=== PATIENT | female | born 1950 | race Caucasian/White ===

== ENCOUNTER 2019-06-26 07:53 | Observation (INO) | payer MEDICARE, BC, OTHER ==
--- NOTE | 2019-06-14 08:55 | HP ---
HISTORY AND PHYSICAL: DATE OF ADMISSION/SURGERY: 06/26/19 DATE OF OFFICE VISIT: 06/13/19 SURGEON: Sloane Sinha MD * (DICTATED BY BRANDON MARROQUIN) PROCEDURE: Left total knee arthroplasty. CHIEF COMPLAINT: Left knee pain. HISTORY OF PRESENT ILLNESS: Ms. Rebolledo is a 69-year-old female with end-stage osteoarthritis of the left knee. She has failed conservative treatment and elected to proceed with a left total knee arthroplasty. PAST MEDICAL HISTORY: 1. Hypertension. 2. High cholesterol. 3. Hypothyroidism. 4. History of thyroid cancer. PAST SURGICAL HISTORY: 1. Thyroidectomy. 2. Breast reduction. 3. Tonsillectomy. 4. . 5. Bunionectomy. CURRENT MEDICATIONS: 1. Citalopram hydrobromide 10 mg a day. 2. Livalo 2 mg daily. 3. Levothyroxine 137 mcg a day. 4. Vitamin D. 5. Meloxicam 15 mg a day. 6. Losartan potassium 50 mg a day. 7. Aspirin 81 mg a day. ALLERGIES: No known drug allergies. FAMILY HISTORY: Denies. SOCIAL HISTORY: She is a 69-year-old female, lives with her . She does not smoke, or use drugs or alcohol. REVIEW OF SYSTEMS: A complete 14-point review of systems was reviewed with the patient. It was positive for a history of thyroid cancer resulting in a thyroidectomy causing hypothyroidism. She denies history of DVT, PE, hepatitis , HIV or anesthesia problems. PHYSICAL EXAMINATION GENERAL: She is well developed, well nourished, in no acute distress. VITAL SIGNS: She stands 64 inches tall, weighs 180 pounds. Her blood pressure is 118/72 and her heart rate is 60. HEENT: Normocephalic, atraumatic. NECK: Supple. No palpable lymph nodes. PULMONARY: The lungs are clear to auscultation bilaterally. CARDIO: Regular rate and rhythm. Strong S1, S2. ABDOMEN: Soft, nontender, nondistended. MUSCULOSKELETAL: Left lower extremity: The skin is intact. No open wounds or abrasions. There is a moderate effusion of the left knee joint. Some tenderness along the medial and lateral joint line. There is some varus and valgus laxity with stress testing. Range of motion is 10 to 120 degrees of flexion. She is able to dorsiflex and plantar flex. She has a 2+ dorsalis pedis pulse and intact sensation. NEUROLOGICAL: She is alert and oriented x3. ASSESSMENT AND PLAN: Ms. Rebolledo is a 69-year-old female with end-stage osteoarthritis of the left knee. She has failed conservative treatment and elected to proceed with a left total knee arthroplasty. The surgery is scheduled for 06/26/[address] Sinha discussed the risks and benefits of the surgery at today's visit and all of her questions were answered. She will follow up with Dr. Sinha 2 weeks after the surgery. RBANDON MARROQUIN [id number]/CPS #: [id number] MTDD
[~2019-06-26 07:53] MED LIST: Acetaminophen TAB* 325 MG PO ONE; Buffered Lidocaine 1% SYRIN* 1 ML/SYRINGE INTRADERM ONE; Famotidine IV* 10 MG/ML 2 ML (20 mg) IV ONE; Gabapentin CAP(*) 300 MG PO ONE; Lactated Ringers 1000 ML Bag* 1,000 ML IV SCH; Tranexamic Acid 1,000 MG in NS 0.9% 50 ML* (outpatient use) IV SCH
--- OUTSIDE RECORDS SUMMARY | 2019-06-26 07:56 | XMS REPORT | Continuity of Care Document ---
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 [phone] Endocrinology, Diabetes & Metabolism Problems Active Problems Provider Date Hypothyroidism Onset: 01/27/2010 Benign essential hypertension Kimberly Beckham MD Onset: 11/08/2011 Pure hypercholesterolemia Kimberly Beckham MD Onset: 02/25/2016 Essential hypertension Kimberly Beckham MD Onset: 10/01/2015 Social History Type Date Description Comments Sex Unknown Cigarette Use Quit - Age 50 Tobacco Use Start: Unknown End: Unknown Patient is a former smoker Smoking Status Reviewed: 06/19/19 Patient is a former smoker Allergies, Adverse Reactions, Alerts Description No Known Drug Allergies Medications Active Medications SIG Qnty Indications Ordering Provider Date Citalopram Hydrobromide Take One Tablet 90tabs F32.1 Kimberly Beckham 09/2017 By Mouth Every MMD 10mg Tablets Day Shingrix 2 shot series 2units Kimberly Beckham 10/17/2017 50mcg Suspension MD [facility] Rec Livalo Take One Tablet 90tabs E78.2 Kimberly Beckham 10/03/2015 2mg Tablets By Mouth Every MMD Day Levothyroxine Sodium take one tablet 90tabs E03.9 Kimberly Beckham 2014 137mcg by mouth every MMD Tablets day Vitamin D 1 by mouth E55.9 Kimberly Beckham 07/12/2014 1000Unit Tablets every day MD [facility] Meloxicam Take 1/2 To 1 90tabs M17.10 Angel Luis Strong PA 10/01/2013 15mg Tablets Tablet By Mouth Once Daily as Needed Losartan Potassium Take One Tablet 90tabs I10 Kimberly Beckham 07/13/2010 50mg By qhs MD [facility] Tablets Aspirin 1 po qOd 90tabs 786.09 Kimberly Beckham 01/27/[address] [facility] MD History Medications Citalopram 1 by mouth 90tabs F32.1 Kimberly Beckham 04/02/2019 - Hydrobromide every day MD [facility] 04/02/2019 20mg Tablets Medications Administered in Office Medication SIG Qnty Indications Ordering Provider Date PPD Kimberly Beckham MD 04/02/2019 Injection PPD Nurses Schedule [facility] 04/17/2018 Injection PPD Kimberly Beckham MD 03/28/2017 Injection Immunizations CPT Code Status Date Vaccine Lot # [id number] Given 04/02/2019 Influenza Vac, Quadrivalent, Split, 0.5mL Dosage, [id number] Im Use 04189 Given 05/17/2018 Influenza Vac, Quadrivalent, Split, 0.5mL Dosage, [id number] Im Use 23692 Given 02/07/2017 Influenza Vac, Quadrivalent, Split, 0.5mL Dosage, [id number] Im Use 63342 Given 02/25/2016 Influenza Vac, Quadrivalent, Split, 0.5mL Dosage, [id number] Im Use 06361 Given 01/20/2015 Zoster (Zostavax) 30159 Given 01/01/2015 Prevnar 13 Pneumococal Conjugate Vaccine [id number] Q2038 Given 03/08/2014 Fluzone Trivalent Immunization [id number] 79311 Given 10/01/2013 Pneumococcal 23 Immunization Adult Or Immunosuppressed Patient 47211 Given 10/01/2013 Pneumococcal 23 Immunization Adult Or [id number] Immunosuppressed Patient Q2038 Given 03/27/2013 Fluzone Trivalent Immunization [id number] Q2038 Given 2012 Fluzone Trivalent Immunization [id number] Q2038 Given 05/14/2011 Fluzone Trivalent Immunization [id number] 51308 Given 02/07/2011 Tdap (Adacel) Ages 7 And Above Only [id number] 45257 Given 02/23/2010 Afluria Or Fluvirin Flu Vac Intramuscular [id number] Vital Signs Date Vital Result Comment 06/19/2019 2:48pm Weight 180.00 lb Heart Rate 80 /min BP Systolic 112 mmHg BP Diastolic 70 mmHg Height 64 inches 5'4" BMI (Body Mass Index) 30.9 kg/m2 04/02/2019 9:08am Weight 178.00 lb Heart Rate 68 /min BP Systolic 132 mmHg BP Diastolic 78 mmHg Height 64 inches 5'4" BMI (Body Mass Index) 30.6 kg/m2 Results Test Acquired Date Facility Test Result H/L Range Note Laboratory test 04/16/2019 [facility] Free Thyroxine 1.71 ng/dL High 0.93-1.70 finding TSH 0.875 u[IU]/mL 0.270-4.200 Thyroglob And AB, 04/16/2019 [facility] Thyroglob SerPl-mCnc 0.1 ng/mL <35 1 Quant Thyroglob Ab SerPl-aCnc <0.9 IU/mL <2.3 2 Laboratory test 04/06/2019 [facility] Igg AB POSITIVE AI 3, 4 finding Lipid Treatment 04/02/2019 [facility] Cholesterol 214 mg/dL High 50-199 Triglycerides 76 mg/dL 30-200 HDL 75 mg/dL 35-85 5 Chol/ HDL Ratio 2.8 ratio Low 3.7-5.6 VLDL 15 mg/dL 2-29 LDL (Calc) 124 mg/dL High 20-99 6 Alt 26 U/L 3-42 Ast 21 U/L 8-42 Laboratory test finding 04/02/2019 [facility] TSH 1.62 uIU/mL 0.35-4.94 Basic (BMP) 04/02/2019 [facility] Sodium 144 mmol/L 135-146 7 Potassium 4.7 mmol/L 3.5-5.2 Chloride# 106 mmol/L 97-110 8 Carbon Dioxide 28 mmol/L 24-34 Glucose 83 mg/dL 70-105 BUN 19 mg/dL 6-26 Creatinine 0.9 mg/dL 0.5-1.4 Calcium 9.5 mg/dL 8.5-10.5 9 Female Egfr 69 >60 10 Male Egfr 88 >60 11 Anion Gap 10 mmol/L 5-15 12 Laboratory test finding 04/02/2019 [facility] Vitamin D 25 Hydroxy 30 ng/mL 30-100 13 1 (NOTE) Note: High Biotin intake may cause falsely low results. Interpretation: If Thyroglobulin Antibody results ">2.3 IU/mL", Thyroglobulin testing via LC-MS/MS should be ordered, which is a send out test ([employer] Test Code:579369). Test performed on [employer] [place] Access 2 using immunoenzymatic immunoassay technology. 2 (NOTE) Note: High Biotin intake may cause falsely low results. Test performed on [employer] [place] Access 2 using immunoenzymatic immunoassay technology. 3 This sample is drawn by:[facility]. 4 IgG antibody to Rubella detected. IgG antibody levels are at a level considered to indicate positive immunity. Unless otherwise specified, testing performed by [facility] [address] [place] [id number] 5 Per NCEP ATP III Guidelines: Results lower than 40 mg/dL are suggestive of increased risk for coronary artery disease. Results > or = to 60 mg/dL are considered a negative risk factor. 6 Per NCEP ATP III Guidelines: Normal Population <130 Patients with medical conditions: CHD/DM Optimal: <100 Borderline high: 130-159 High: 160-189 Very high: >189 7 Updated reference range on new analyzer 8 Updated reference range on new analyzer 9 Updated reference range 09-27-2018 10 Concerning GFR Guidelines for Americans: Normal function or mild renal disease, if clinically at risk: >/= 60 mL/min Moderately decreased: 30-59 Severely decreased: 15-29 Renal failure: <15 There is reduced accuracy above 60ml/min/1.73 m squared, but the numeric value may be clinically useful in the near 60 range 11 Concerning GFR Guidelines: Normal function or mild renal disease, if clinically at risk: >/= 60 mL/min Moderately decreased: 30-59 Severely decreased: 15-29 Renal failure: <15 There is reduced accuracy above 60ml/min/1.73 m squared, but the numeric value may be clinically useful in the near 60 range Glomerular Filtration Rate (GFR) is estimated based on the CKD-EPI equation, which assumes a steady state for creatinine as recommended by the National Kidney Disease Education Program in conjunction with the National Institutes of Health and the National Kidney Foundation. Clinical conditions in which it may be necessary to measure GFR by using clearance methods include extremes of age and body size, severe malnutrition or obesity, diseases of skeletal muscle, paraplegia or quadriplegia, vegetarian diet, rapidly changing kidney function, and calculation of the dose of potentially toxic drugs that are excreted by the kidneys. 12 Updated Reference Range 2-2017 13 Clinical Guidelines for recommended serum 25(OH)Vitamin D Deficient at less than 20 ng/mL Insufficient at 20 to <30 ng/mL Sufficient at 30-100 ng/mL Toxicity at greater than 100 ng/mL Procedures Date Code Description Status 06/07/2018 355261867 Bone Mineral Density Test Completed 06/07/2018 [id number] Mammogram Completed 01/19/2017 [id number] Colonoscopy Completed 06/25/2015 [id number] Mammogram Completed 12/03/2013 [id number] Mammogram Completed 10/11/2011 [id number] Colonoscopy Completed 04/08/2010 [id number] Mammogram Completed Medical Devices Description No Information Available Encounters Type Date Location Provider Dx Diagnosis Office Visit 04/04/2019 [facility] Z11.1 Encounter for screening 9:30a [facility] for respiratory tuberculosis Office Visit 04/02/2019 Kimberly Andino Z11.1 Encounter for screening 9:00a MD [facility] for respiratory tuberculosis E66.9 Obesity, unspecified I10 Essential (primary) hypertension E03.9 Hypothyroidism, unspecified R59.0 Localized enlarged lymph nodes C73 Malignant neoplasm of thyroid gland F32.1 Major depressive disorder, single episode, moderate E55.9 Vitamin D deficiency, unspecified E78.2 Mixed hyperlipidemia I71.2 Thoracic aortic aneurysm, without rupture M17.0 Bilateral primary osteoarthritis of knee Z23 Encounter for immunization 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 Z68.30 Body mass index (BMI) 30.0-30.9, adult Assessments Date Code Description Provider 06/19/2019 E66.9 Obesity, unspecified Kimberly Beckham MD 06/19/2019 Z01.818 Encounter for other preprocedural Kimberly Beckham MD examination 06/19/2019 F32.1 Major depressive disorder, single episode, Kimberly Beckham MD moderate 06/19/2019 C73 Malignant neoplasm of thyroid gland Kimberly Beckham MD 06/19/2019 I71.2 Thoracic aortic aneurysm, without rupture Kimberly Beckham MD 06/19/2019 I10 Essential (primary) hypertension Kimberly Beckham MD 06/19/2019 M17.12 Unilateral primary osteoarthritis, LEFT Kimberly Beckham MD knee 06/19/2019 E55.9 Vitamin D deficiency, unspecified Kimberly Beckham MD 06/19/2019 Z68.30 Body mass index (BMI) 30.0-30.9, adult Kimberly Beckham MD 04/06/2019 Z28.3 Underimmunization status Kimberly Beckham MD 04/04/2019 Z11.1 Encounter for screening for respiratory Kimberly Beckham MD tuberculosis 04/04/2019 Z11.1 Encounter for screening for respiratory Nurses Schedule [facility] tuberculosis 04/02/2019 Z11.1 Encounter for screening for respiratory Kimberly Beckham MD tuberculosis 04/02/2019 E66.9 Obesity, unspecified Kimberly Beckham MD 04/02/2019 I10 Essential (primary) hypertension Kimberly Beckham MD 04/02/2019 E03.9 Hypothyroidism, unspecified Kimberly Beckham MD 04/02/2019 E55.9 Vitamin D deficiency, unspecified [facility] 04/02/2019 R59.0 Localized enlarged lymph nodes Kimberly Beckham MD 04/02/2019 C73 Malignant neoplasm of thyroid gland Kimberly Beckham MD 04/02/2019 F32.1 Major depressive disorder, single episode, Kimberly Beckham MD moderate 04/02/2019 E55.9 Vitamin D deficiency, unspecified Kimberly Beckham MD 04/02/2019 E78.2 Mixed hyperlipidemia Kimberly Beckham MD 04/02/2019 I71.2 Thoracic aortic aneurysm, without rupture Kimberly Beckham MD 04/02/2019 M17.0 Bilateral primary osteoarthritis of knee Kimberly Beckham MD 04/02/2019 Z23 Encounter for immunization Kimberly Beckham MD 04/02/2019 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 Plan of Treatment Future Appointment(s):07/16/2019 9:00 am - Kimberly Beckham MD at [facility]0906/19 - Kimberly Beckham MDE66.9 Obesity, llsxclnkyifR99.818 Encounter for other preprocedural gnjcaxatqiyB42.1 Major depressive disorder, single episode, xqxopstxR39 Malignant neoplasm of thyroid jzharX54.2 Thoracic aortic aneurysm, without sfgadihB27 Essential (primary) ztsbtnmvmzevP75.12 Unilateral primary osteoarthritis, LEFT kneeE55.9 Vitamin D deficiency, hsomaobawacE20.30 Body mass index (BMI) 30.0-30.9, adult Functional Status Description No Information Available Mental Status Description No Information Available Referrals Refer to Reason for Referral Status Appt Date Sloane Sinha DR BILATERAL KNEE-TUESDAY, TUE OR TUESDAY Closed 04/16/201904/02-SCHEDULED WITH TENISHA SCHMIDT PUT IN PT TELEVISION SERVICER FOR WHEN SHE IS IN ON TUE FOR AN APPT-AA 04/05-CONFIRMED WITH T SHE HAS INFO AND THIS WILL WORK FOR HER-AA [address] [place] [address] [phone]
--- OUTSIDE RECORDS SUMMARY | 2019-06-26 07:56 | XMS REPORT | Continuity of Care Document ---
:1950 External Reference #:[id number] Author Name Sloane Sinha M.D. (transmitted by agent of provider Irma Denney) Address [address] [place] [address] Care Team Providers Name Role Phone Kimberly Beckham MD - Internal Care Team Information [facility] Problems Active Problems Provider Date Localized, primary osteoarthritis Sloane Sinha M.D. Onset: 04/16/2019 Social History Type Date Description Comments Sex Unknown Tobacco Use Start: Unknown End: Unknown Patient is a former smoker Smoking Status Reviewed: 06/13/19 Patient is a former smoker Allergies, Adverse Reactions, Alerts Description No Known Drug Allergies Medications Active Medications SIG Qnty Indications Ordering Provider Date Citalopram Hydrobromide 1 by mouth every Unknown day 10mg Tablets Livalo take one tablet Unknown 2mg Tablets by mouth every evening Levothyroxine Sodium 1 by mouth every Unknown 137mcg day Tablets Vitamin D by mouth everyday Unknown 25mcg (1000 Ut) Tablets Meloxicam 1 by mouth every Unknown 15mg Tablets day Losartan Potassium 1 by mouth every Unknown 50mg day Tablets Aspir-Low 1 by mouth every Unknown 81mg Tablets DR day Immunizations Description No Information Available Vital Signs Date Vital Result Comment 06/13/2019 8:31am Height 64 inches 5'4" Weight 180.00 lb Heart Rate 60 /min BP Systolic 118 mmHg BP Diastolic 72 mmHg Respiratory Rate 18 /min Pain Level 0 BMI (Body Mass Index) 30.9 kg/m2 04/16/2019 8:40am Height 64 inches 5'4" Weight 177.00 lb Heart Rate 72 /min BP Systolic 132 mmHg BP Diastolic 82 mmHg Body Temperature 96.5 F Pain Level 1 BMI (Body Mass Index) 30.4 kg/m2 Results Description No Information Available Procedures Description No Information Available Medical Devices Description No Information Available Encounters Type Date Location Provider Dx Diagnosis Office Visit 04/16/2019 [facility] Sloane Sinha, M25.562 Pain in left knee 8:00a at [place] [facility] M25.561 Pain in right knee M25.462 Effusion, left knee M25.461 Effusion, right knee M17.0 Bilateral primary osteoarthritis of knee 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 06/13/2019 M25.462 Effusion, left knee Sloane Sinha M.D. 06/13/2019 M17.0 Bilateral primary osteoarthritis of knee Sloane Sinha M.D. 06/13/2019 M21.162 Varus deformity, not elsewhere classified, tania Sinha M.D. knee 04/16/2019 M25.562 Pain in left knee Sloane Sinha M.D. 04/16/2019 M25.561 Pain in right knee Sloane Sinha M.D. 04/16/2019 M25.462 Effusion, left knee Sloane Sinha M.D. 04/16/2019 M25.461 Effusion, right knee Sloane Sinha M.D. 04/16/2019 M17.0 Bilateral primary osteoarthritis of knee Sloane Sinha M.D. 04/16/2019 M21.162 Varus deformity, not elsewhere classified, left Sloane Sinha M.D. knee Plan of Treatment Future Appointment(s):07/09/2019 9:45 am - Sloane Sinha M.D. at [facility] at Ngnjxz9306/26/2019 2:30 pm - Karan Sow PA-C at [facility] at Edpkyr5206/26/2019 2:30 pm - BRANDON Chin at [facility] at Eewkyu7906/26/2019 2:30 pm - Sloane Sinha M.D. at [facility] at Mmdjym1206/13/2019 - Sloane Sinha M.D.M25.562 Pain in left kneeFollow up:Follow up: 2 weeks after vfnzpgjP51.462 Effusion, left kneeM17.0 Bilateral primary osteoarthritis of kneeM21.162 Varus deformity, not elsewhere classified, left knee Functional Status Description No Information Available Mental Status Description No Information Available Referrals Description No Information Available
--- OUTSIDE RECORDS SUMMARY | 2019-06-26 07:56 | XMS REPORT | Continuity of Care Document ---
:1950 External Reference #:[id number] Author Name Sloane Sinha M.D. (transmitted by agent of provider Mary Kate Rubio) Address [address] [place] [address] Care Team Providers Name Role Phone Kimberly Beckham MD - Internal Care Team Information Residential Pest Control Technician Medicine Problems Active Problems Provider Date Localized, [...] BMI (Body Mass Index) 30.4 kg/m2 Results Test Acquired Date Facility Test Result H/L Range Note Urinalysis Profile 06/13/2019 [facility] Urine Color Straw [address] [place] [address] [phone] Urine Appearance Clear Urine Specific [place] 1.006 Low 1.010-1.030 Urine pH 7.0 Normal 5-9 Urine Urobilinogen Negative Negative Urine Ketones Negative Negative Urine Protein Negative Negative Urine Leukocytes 3+ Abnormal Negative Urine Blood 1+ Abnormal Negative Urine Nitrite Negative Negative Urine Bilirubin Negative Negative Urine Glucose Negative Negative Urine White Blood Cell 3+(>20/hpf) Abnormal Absent Urine Red Blood Cell Trace(0-2/hpf) Absent Urine Bacteria Absent Absent Urine Squamous Epithelial Cell Present Abnormal Absent Urine Transitional Epithelial Present Abnormal Absent CBC Auto 06/13/2019 [facility] White Blood 4.1 10^3/uL Normal 3.5-10.[address] [place] [address] [phone] Red Blood Count 4.97 10^6/uL High 3.70-4.87 Hemoglobin 14.4 g/dL Normal 12.0-16.0 Hematocrit 42 % Normal 35-47 Mean Corpuscular Volume 85 fL Normal 80-97 Mean Corpuscular Hemoglobin 29 pg Normal 27-31 Mean Corpuscular HGB Conc 34 g/dL Normal 31-36 Red Cell Distribution Width 14 % Normal 10-15 Platelet Count 296 10^3/uL Normal 150-450 Mean Platelet Volume 8.2 fL Normal 7.4-10.4 Abs Neutrophils 2.1 10^3/uL Normal 1.5-7.7 Abs Lymphocytes 1.5 10^3/uL Normal 1.0-4.8 Abs Monocytes 0.3 10^3/uL Normal 0-0.8 Abs Eosinophils 0.1 10^3/uL Normal 0-0.6 Abs Basophils 0.0 10^3/uL Normal 0-0.2 Abs Nucleated RBC 0.0 10^3/uL Granulocyte % 52.1 % Lymphocyte % 36.8 % Monocyte % 8.2 % Eosinophil % 2.5 % Basophil % 0.4 % Nucleated Red Blood Cells % 0.1 Comp Metabolic 06/13/2019 [facility] Sodium 139 mmol/L Normal 135-[address] [place] [address] [phone] Potassium 4.7 mmol/L Normal 3.5-5.0 Chloride 104 mmol/L Normal 101-111 Co2 Carbon Dioxide 29 mmol/L Normal 22-32 Anion Gap 6 mmol/L Normal 2-11 Glucose 81 mg/dL Normal 70-100 Blood Urea Nitrogen 21 mg/dL Normal 6-24 Creatinine 0.86 mg/dL Normal 0.51-0.95 BUN/Creatinine Ratio 24.4 High 8-20 Calcium 9.5 mg/dL Normal 8.6-10.3 Total Protein 6.8 g/dL Normal 6.4-8.9 Albumin 4.6 g/dL Normal 3.2-5.2 Globulin 2.2 g/dL Normal 2-4 Albumin/Globulin Ratio 2.1 Normal 1-3 Total Bilirubin 0.70 mg/dL Normal 0.2-1.0 Alkaline Phosphatase 52 U/L Normal 34-104 Alt 29 U/L Normal 7-52 Ast 19 U/L Normal 13-39 Egfr Non- 65.0 >60 Egfr 78.7 >60 1 Inr/Protime 06/13/2019 [facility] Inr 0.95 Normal 0.82-1.[address] [place] [address] [phone] Laboratory test 06/13/2019 [facility] Partial 36.2 Normal 26.0 -38.[address] [address] Time PTT [phone] Type & Screen 06/13/2019 [facility] Patient AB Positive [address] Blood Type [place], [place] [id number] [phone] Antibody Screen NEGATIVE Urine Culture And 06/13/2019 [facility] Urine Culture SEE RESULT [address] [place], [place] [id number] [phone] 1 Because ethnic data is not always readily available, this report includes an eGFR for both -Americans and non- Americans. The National Kidney Disease Education Program (NKDEP) does not endorse the use of the MDRD equation for patients that are not between the ages of 18 and 70, are , have extremes of body size, muscle mass, or nutritional status, or are non- or non-. According to the National Kidney Foundation, irrespective of diagnosis, the stage of the disease is based on the level of kidney function: Stage Description GFR(mL/min/1.73 m(2)) 1 Kidney damage with normal or decreased GFR 90 2 Kidney damage with mild decrease in GFR 60-89 3 Moderate decrease in GFR 30-59 4 Severe decrease in GFR 15-29 5 Kidney failure <15 (or dialysis) 2 Standard intensity warfarin therapeutic range: 2.0-3.0 High intensity warfarin therapeutic range: 2.5-3.5 3 SEE RESULT BELOW Name: FLORENCIA ROSAS : [address]: Sloane Sinha MD Acct: [id number] Unit: [id number] AGE: 69 Location: [facility] Re06/13/19 SEX: F Status: REG REF SPEC: [id number] TATIANA: 06/13/[address] [facility] [address]: Sloane Sinha MD REQ: [id number] RECD: 06/13/19 STATUS: VIOLETTA CASH DR: Kimberly Beckham MD _ SOURCE: URINE SPDESC: ORDERED: Urine Culture QUERIES: Urine Source: Clean Catch Procedure Result Reported Site Urine Culture Final 06/14/19- 1224 ML No growth of clinically significant organisms * ML - Main Lab . END OF REPORT DEPARTMENT OF PATHOLOGY, [address] [place] [address] Trace Benavides M.D. Director [facility] # [id number] Procedures Description No Information Available Medical Devices Description No Information Available Encounters Type Date Location Provider Dx Diagnosis Office Visit 04/16/2019 [facility] Sloane Sinha, M25.562 Pain in left knee 8:00a at [facility].DJodie M25.561 Pain in right knee M25.462 Effusion, left knee M25.461 Effusion, right knee M17.0 Bilateral primary osteoarthritis of knee 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 06/13/2019 M25.462 Effusion, left knee Sloane Sinha M.D. 06/13/2019 M17.12 Unilateral primary osteoarthritis, left knee Sloane Sinha M.D. 06/13/2019 M21.162 Varus deformity, not elsewhere classified, left Sloane Sinha M.D. knee 04/16/2019 M25.562 Pain in [...] 9:45 am - Sloane Sinha M.D. at [facility] at Yizolr2306/26/2019 2:30 pm - Karan Sow PA-C at [facility] at Cmkjaw2306/26/2019 2:30 pm - BRANDON Chin at [facility] at Rakhiy9106/26/2019 2:30 pm - Sloane Sinha M.D. at [facility] at Jdmdmj2306/13/2019 - Sloane Sinha M.D.M25.562 Pain in left kneeFollow up:Follow up: 2 weeks after yxvmzggW51.462 Effusion, left kneeM17.12 Unilateral primary osteoarthritis, left kneeM21.162 Varus deformity, not elsewhere classified, left knee Functional Status Description No Information Available Mental Status Description No Information Available Referrals Description No Information Available
[2019-06-26] MEDS ORDERED: Gabapentin CAP(*) 300 MG ONE (08:43)
[2019-06-26] MEDS ORDERED: Acetaminophen TAB* 325 MG ONE (08:43)
[2019-06-26] MEDS ORDERED: ceFAZolin 2 GM PREMIX in ORs 2 GM/50 ML BAG ONE (08:43)
[2019-06-26] MEDS ORDERED: Famotidine IV* 10 MG/ML 2 ML (20 mg) ONE (08:43)
[2019-06-26] MEDS ORDERED: fentaNYL* 50 MCG/ML 2 ML VIAL (100 MCG VIAL) ONE (09:23)
[2019-06-26] MEDS ORDERED: Ondansetron INJ* 2 MG/ML VIAL ONE (09:23)
[2019-06-26] MEDS ORDERED: KETAMINE HCL* 50 MG/ML 10 ML VIAL ONE (09:23)
[2019-06-26] MEDS ORDERED: Propofol* 10 MG/ML 20 ML BTL ONE ×2 (09:23→11:26)
[2019-06-26] MEDS ORDERED: Dexamethasone IV* 4 MG/ML 1 ML (4 MG) ONE (09:23)
[2019-06-26] MEDS ORDERED: Midazolam* 1 MG/ML 10 ML VIAL (10 MG) ONE (09:23)
[2019-06-26] MEDS ORDERED: ROPIVACAINE 5 MG/ML 30 ML BTL (0.5%) ONE ×2 (09:23→10:07)
[2019-06-26] MEDS ORDERED: Lidocaine 2% PF * 5 ML VIAL ONE (09:23)
[2019-06-26] MEDS ORDERED: Bupivacaine 0.5% SDV PF* 30ML VIAL ONE (11:00)
[2019-06-26] MEDS ORDERED: Ketorolac INJ* 30 MG/ML 1 ML VIAL ONE (12:19)
[2019-06-26] MEDS ORDERED: Naloxone* 0.4 MG/ML 1 ML VIAL IV PRN (12:57)
[2019-06-26] MEDS ORDERED: fentaNYL* 50 MCG/ML 2 ML VIAL (100 MCG VIAL) IV PRN (12:57)
[2019-06-26] MEDS ORDERED: Ondansetron INJ* 2 MG/ML VIAL IV PRN ×2 (12:57→13:31)
[2019-06-26] MEDS ORDERED: Polyethylene Glycol 3350* 17 GM PACKET PO PRN (13:31)
[2019-06-26] MEDS ORDERED: Magnesium Hydroxide LIQ* 30 ML UDC PO PRN (13:31)
[2019-06-26] MEDS ORDERED: diPHENhydraMINE PO* 25 MG PO PRN (13:31)
[2019-06-26] MEDS ORDERED: diPHENhydraMINE IV* 50 MG/ML 1 ml VIAL (BENADRYL) IV PRN (13:31)
[2019-06-26] MEDS ORDERED: oxyCODONE TAB* 5 MG TAB PO PRN (13:31)
[2019-06-26] MEDS ORDERED: Ondansetron ODT TAB* 4 MG PO PRN (13:31)
[2019-06-26] MEDS ORDERED: Morphine INJ* 2 MG/ML 1 ML SYRINGE (TWO MG - NEW SYRINGE VERSION) IV PRN (13:31)
[2019-06-26] MEDS ORDERED: Cyclobenzaprine TAB* 10 MG PO PRN (13:31)
[2019-06-26] MEDS ORDERED: traMADol TAB* 50 MG PO PRN (13:31)
[2019-06-26] MEDS: Lactated Ringers 1000 ML Bag* 1,000 ML IV SCH (14:56)
--- NOTE | 2019-06-26 15:58 | PN ---
Progress Note - Progress Note Date of Service: 06/26/19 SOAP: Subjective: The pt is a sitting up in bed eating a meal. She states that she is feeling good. No pain at this point. Denies any chest pain, SOB, nausea, vomiting. Objective: General: Pt is alert and oriented x3. NAD. Vital Signs Temp 97.3 F 06/26/19 15:11 Pulse 52 06/26/19 15:11 Resp 18 06/26/19 15:11 BP 118/77 06/26/19 15:11 Pulse Ox 94 06/26/19 15:11 Intake & Output 06/25/19 06/26/19 06/26/19 18:59 06:59 18:59 Intake Total 4400 Output Total 2550 Balance 1850 Weight 176 lb Intake: IV Fluids 4400 LR 2400 Lacteted Ringer 2000 Output: Chavez 2350 Estimated Blood Loss 200 Assessment: [POD 0 LTKA] Plan: [Percocet for pain Eliquis 2.5 mg bid Abx x24 hours PT ]
--- NOTE | 2019-06-26 17:00 | CONS ---
CC: Dr. Kimberly Beckham; Dr. Sinha * CONSULTATION REPORT: DATE OF CONSULT: 06/26/19 PRIMARY CARE PROVIDER: Dr. Kimberly Beckham. REQUESTING PHYSICIAN: Dr. Sinha. REASON FOR CONSULT: Medical co-management of patient with a history of hypertension and hypothyroidism, status post elective left knee replacement. CHIEF COMPLAINT: Left knee pain. HISTORY OF PRESENT ILLNESS: Sasha Rebolledo is a 69-year-old female with a history of hypertension and hypothyroidism, who is status post elective left knee replacement by Dr. Sinha. A consultation was requested in order to medically manage the patient's hypertension. PAST MEDICAL HISTORY: 1. Hypertension. 2. Hypercholesterolemia. 3. Hypothyroidism. 4. History of thyroid cancer. PAST SURGICAL HISTORY: 1. Thyroidectomy. 2. History of breast reduction. 3. History of tonsillectomy. 4. History of . 5. Bunionectomy. MEDICATIONS AT HOME: Include: 1. Pitavastatin 2 mg daily. 2. Meloxicam mg daily. 3. Losartan 50 mg daily. 4. Levothyroxine 137 mcg daily. 5. Celexa, the patient takes 5 mg daily. 6. Calcium carbonate/vitamin D 1 capsule daily. 7. Aspirin 81 mg daily. ALLERGIES: No known drug allergies. FAMILY HISTORY: Mother is doing well and alive at age of 93. Father of lung cancer at the age of 91. SOCIAL HISTORY: The patient denies any tobacco, alcohol, or drug use. She lives with her who is her surrogate. She is currently retired and a full code. REVIEW OF SYSTEMS: Please see history of present illness. All the remaining 12 systems were reviewed with the patient and were otherwise negative. PHYSICAL EXAM: Blood pressure 125/83, heart rate of 53 and regular, respiratory rate 21, oxygen saturation 96% on room air, temperature of 96.4. General: The patient is a very pleasant 69-year-old female, who is in no acute distress. The patient is alert and oriented x3. HEENT: Head: Atraumatic, normocephalic. Eyes: Pupils are equal, reactive to light and accommodation. Oropharynx is clear. Mucosa moist. Neck: Supple. No JVD. No bruits bilaterally. Cardiovascular: Regular rate and rhythm. No murmur. Respiratory : Clear to auscultation bilaterally. Abdomen: Soft, nontender. Bowel sounds are present in all 4 quadrants. Extremities: There is trace left ankle edema. Otherwise, no edema on the right side. Pulses are +2 bilaterally. No clubbing or cyanosis. On evaluation of the skin, the patient's left postoperative knee is in postoperative dressings and Cryo unit, which were not removed for evaluation. LABORATORY DATA: Current laboratory values: None. ASSESSMENT AND PLAN: 1. In regards to postoperative management of this patient status post left knee surgery, the patient was already placed on apixaban as per primary orthopedic service. 2. For the patient's hypothyroidism, we will continue her Synthroid at home dose. 3. For the patient's hypertension, the patient is going to be continued on her losartan only if her systolic pressures are above 120 in the morning. 4. For DVT prophylaxis, Eliquis is going to be continued. 5. The patient's code status is full. Her surrogate is her . TIME SPENT: Approximately 55 minutes was spent on consultation of this patient , more than half that time was spent [id number] with the patient during the interview and physical exam. Thank you very much for allowing our service to see your patient in consultation. We will sign off at this point and we will follow the patient on a p.r.n. basis. [id number]/[facility] #: [id number] [place]
[2019-06-26] MEDS: Magnesium Hydroxide LIQ* 30 ML UDC PO SCH (19:35)
[2019-06-26] MEDS: Docusate CAP* 100 MG PO SCH (19:35)
[2019-06-26] MEDS: ceFAZolin 1 GM ADVAN(*) 1 GM in NS 0.9% 50 ML* 50 ML IVPB SCH (19:36)
--- NOTE | 2019-06-26 20:42 | OP ---
Operative Report - Blank - Operative Report Date of Operation: 06/26/19 Note: CLINT KLEIN 1950 Date of Surgery: 06/26/19 Sloane Sinha MD Fruit Washer: Maria Eugenia TAYLOR did help throughout the procedure with preparation of the knee, wound retraction, manipulation of the knee, and wound closure. Anesthesiologist: Kleber De Leon MD Anesthesia Type: Spinal Preoperative Diagnosis: Left severe degenerative osteoarthritis of the knee Postoperative Diagnosis: As above Procedure Performed: Left Total Knee Arthroplasty Tourniquet time: 49 minutes Complications: None Drains - none EBL - 300cc Specimen: Bone and cartilage from the left knee joint sent to pathology. Hardware Used: Cemented Rondon and Nephew total knee hardware was used - For the femur a size 6 left narrow legion posterior stabilized femoral component, for the tibia a size 5 left luigi II tibial baseplate, for the insert a size 9mm 5 -6 posterior stabilized articular polyethylene insert, and for the patella a size 32 3-peg all poly patella. Brief History/Indication: CLINT KLEIN was known in clinic and had a history of severe left knee pain and swelling. She failed conservative treatment with anti-inflammatories, pain pills, intra-articular injections and physical therapy. She elected to undergo left total knee arthroplasty due to continued pain and decreased quality of life. Radiographs showed severe end stage osteoarthritis of the knee with bone on bone contact. Informed consent was obtained from the patient. She understood the risks of surgery included but were not limited to: bleeding, infection, damage to nearby structures, intraoperative fracture, nerve palsy, failure of the hardware, early loosening, knee stiffness or loss of motion, anesthesia complications, stroke, heart attack , blood clot and . She wished to proceed. Intra-Operative Findings: Intraoperatively the patient was noted to have severe loss of cartilage in all 3 compartments of the knee. She had a 1 cm diameter cyst in the posterior medial femoral condyle. This was filled with bone cement. Description of the Procedure: CLINT KLEIN was identified in the preanesthesia unit. Her left knee was marked as the correct operative side. Informed consent was signed and placed in the chart. The patient was taken to the operating room and placed under anesthesia without complication. A harry catheter was placed. A tourniquet was placed on the left thigh. The left lower extremity was prepped and draped in the usual sterile fashion. Preoperative time-out was made to correctly identify the patient, side and site. Appropriate intraoperative antibiotics were given within one hour of incision. Tourniquet was inflated. A midline incision was made and carried sharply down to the extensor mechanism. A new 10 blade was used to make a standard medial parapatellar arthrotomy. The patella was subluxed laterally. Electrocautery was used to dissect soft tissue off the superomedial tibia to the midsagittal plane. The knee was flexed up. The anterior horn of the lateral meniscus and the ACL were sharply incised. A drill was used to enter the distal femur. The intramedullary distal femoral cutting guide was pinned on the distal femur. The oscillating saw was used to make the distal femoral cut. The external rotation guide was pinned on the distal femur and the distal femur was sized to a size 6. The size 6 multi-cutting jig was pinned on the distal femur. The oscillating saw was used to make the appropriate 4 chamfer cuts. A one centimeter cyst was visualized in the posterior medial femoral condyle. Cystic material was removed and the condyle was stable. Next the PCL was completely released. The extramedullary tibial cutting guide was pinned on the proximal tibia and the oscillating saw was used to make the proximal tibial cut perpendicular to the mechanical axis of the tibia. The bone was carefully removed. The knee was brought out into full extension. The spacer block was placed and had excellent fit with the knee in full extension. The medial and lateral ligaments were well balanced. The flexion and extension gaps were well balanced. The knee was flexed up. Lamina supervisor audit clerks was placed both medially and laterally. Any remaining meniscus was removed with electrocautery. Curved osteotome was used to remove any posterior osteophytes. The tibial tray and drop giorgi were placed and confirmed a satisfactory tibial cut. The size 6 left narrow femoral trial was impacted onto the distal femur. This trial had excellent fit and stability. The box for the posterior stabilized implant was prepared using a box cut osteotome and a reamer. Next a tibial tray trial and 9 mm insert trial was placed. The knee was taken through a range of motion and had full extension to 130 degrees of flexion. Patellofemoral tracking was satisfactory. The patella was inverted and sized to a size 32. Three peg holes were drilled through the size 32 drill guide. The trial patella was placed and the knee was taken through a range of motion. There was satisfactory patellofemoral tracking. All trials were removed. The tibia was subluxed anteriorly and sized to a size 5. The proximal tibial was prepared with a size 5 keel punch. All bony cut surfaces were irrigated with sterile saline and dried. Final implants were cemented into place starting with the tibia, followed by the femur, and last the patella. A 9 mm insert trial was placed and the knee was brought into full extension. Tourniquet was turned down and the knee was copiously irrigated with sterile saline. Electrocautery was used to obtain meticulous hemostasis. Once the cement had fully cured, the insert trial was removed. Any excess cement was removed from around the hardware and capsule. Final insert chosen was a 9 mm posterior stabilized Luigi II articular insert size 5-6. Stability of the insert was checked and noted to be stable. The extensor mechanism was closed using number 1 vicryls. The rest of the incision was closed in a layered fashion using 0 and 2-0 vicryls. The skin was closed using 3-0 nylon suture. Sterile xeroform, 4x4s and webril were used to cover the incision. Milad wrap and cold pack were used to cover the dressings. The patients anesthesia was reversed without difficulty. She was taken to the PACU in stable condition. Intended weight-bearing will be as tolerated.
[2019-06-26] MEDS: oxyCODONE/Acetamin 5/325 MG* TAB PO PRN (20:59)
[2019-06-26] MEDS: Acetaminophen TAB* 325 MG PO SCH (21:30)
[2019-06-27] MEDS: oxyCODONE/Acetamin 5/325 MG* TAB PO PRN (02:01)
[2019-06-27] MEDS: Lactated Ringers 1000 ML Bag* 1,000 ML IV SCH (02:02)
[2019-06-27] MEDS: ceFAZolin 1 GM ADVAN(*) 1 GM in NS 0.9% 50 ML* 50 ML IVPB SCH ×2 (03:50→11:51)
[2019-06-27] MEDS ORDERED: Levothyroxine TAB* 137 MCG TAB PO SCH (06:00)
[2019-06-27] MEDS: Acetaminophen TAB* 325 MG PO SCH ×2 (06:05→12:50)
[2019-06-27 07:16] LABS: Hematocrit 35 % (35-47); Hemoglobin 11.6 g/dL (12.0-16.0)
[2019-06-27 07:22] LABS: Calcium 8.6 mg/dL (8.6-10.3); Potassium 4.3 mmol/L (3.5-5.0)
[2019-06-27 07:25] LABS: Mean Platelet Volume 8.3 fL (7.4-10.4); Platelet Count 203 10^3/uL (150-450)
[2019-06-27 07:28] LABS: BUN/Creatinine Ratio 22.4 (8-20); EGFR African American 90.8 (>60)
[2019-06-27] MEDS ORDERED: Pitavastatin (NF) 2 MG TAB PO SCH (09:00)
[2019-06-27] MEDS ORDERED: Losartan TAB* 25 MG PO SCH ×2 (09:00)
[2019-06-27] MEDS ORDERED: Apixaban* 2.5 MG TAB PO SCH (09:00)
[2019-06-27] MEDS ORDERED: Citalopram TAB* 10 MG PO SCH (09:00)
[2019-06-27] MEDS ORDERED: Vitamin THERAPEUTIC TAB PO SCH (09:00)
[2019-06-27] MEDS: Docusate CAP* 100 MG PO SCH (09:44)
[2019-06-27] MEDS: Magnesium Hydroxide LIQ* 30 ML UDC PO SCH (09:44)
--- NOTE | 2019-06-27 10:16 | PN ---
Progress Note - Progress Note Date of Service: 06/27/19 SOAP: Subjective: []Pt seen at bedside. She feels well without cp, sob, dizziness or nausea. Knee pain well controlled. Objective: []Gen: NAD, appears well LLE: Dressing CDI, thigh soft, DF/PF intact, DP2+, sensation intact to light touch distally, dp2+ Calves supple and nontender without erythema, edema or palpable cords Assessment: []pod 1 tp ltk Plan: []WBAT PT eliquis 2.5 mg po bid x 30 days post op desires DC, home this afternoon if pt goals met hold losartan today, encourage PO fluid Vital Signs Temp 98 F 06/27/19 07:58 Pulse 53 06/27/19 07:58 Resp 18 06/27/19 09:45 BP 103/63 06/27/19 07:58 Pulse Ox 97 06/27/19 07:58 Intake & Output 06/26/19 06/27/19 06/27/19 18:59 06:59 18:59 Intake Total 4640 1080 Output Total 2550 1205 Balance 2090 -125 Weight 176 lb Intake: IV Fluids 4400 LR 2400 Lacteted Ringer 2000 Oral 240 1080 Output: Urine 750 Chavez 2350 455 Estimated Blood Loss 200 Laboratory Last Values Hgb 11.6 g/dL (12.0-16.0) L 06/27/19 06:43 Hct 35 % (35-47) 06/27/19 06:43 Plt Count 203 10^3/uL (150-450) 06/27/19 06:43 MPV 8.3 fL (7.4-10.4) 06/27/19 06:43 Sodium 138 mmol/L (135-145) 06/27/19 06:43 Potassium 4.3 mmol/L (3.5-5.0) 06/27/19 06:43 Chloride 104 mmol/L (101-111) 06/27/19 06:43 Carbon Dioxide 30 mmol/L (22-32) 06/27/19 06:43 Anion Gap 4 mmol/L (2-11) 06/27/19 06:43 BUN 17 mg/dL (6-24) 06/27/19 06:43 Creatinine 0.76 mg/dL (0.51-0.95) 06/27/19 06:43 Est GFR ( Amer) 90.8 (>60) 06/27/19 06:43 Est GFR (Non-Af Amer) 75.0 (>60) 06/27/19 06:43 BUN/Creatinine Ratio 22.4 (8-20) H 06/27/19 06:43 Glucose 98 mg/dL (70-100) 06/27/19 06:43 Calcium 8.6 mg/dL (8.6-10.3) 06/27/19 06:43
[2019-06-27 11:03] VITALS: BP 107/69
--- NOTE | 2019-06-27 14:40 | DS ---
Orthopedic Discharge Summary - Discharge Summary Date of Admission:06/26/19 Date of Discharge: 06/27/19 Date of Surgery: 06/26/19 Attending Orthopedic Provider: Dr Sinha Pre-operative Diagnosis: left knee osteoarthrits Operative Procedure: left total knee replacement Disposition of Patient: home with lifetime nursing and home PT Condition of Patient: stable History: CLINT KLEIN is a 69 year old F with years of increasingly severe left knee pain. Patient has failed conservative management and has elected to undergo a left total knee replacement Hospital Course: CLINT was admitted to [facility] on 06/26/19. Patient underwent a left total knee replacement without complication followed by a brief recovery in PACU and transfer to the Short Stay Surgical Unit in stable condition. Our hospitalist service, physical therapy also participated in this patients care. Post-op day 1: patient was alert and in no acute distress. Dressing was clean, dry and intact. Operative extremity dorsiflexion and plantarflexion intact, sensation intact to light touch distally, DP2+. Post- op day two: dressing was changed, incision was clean, dry and intact. Patient was deemed to be medically and orthopedically stable for discharge. Physical therapy goals were met. Home Medications Medication Instructions Recorded Confirmed Type Aspirin EC TAB* [Ecotrin EC Low 81 mg PO QAM 06/13/19 06/26/19 History Dose 81 MG*] Calcium Carbonate/Vitamin D3 1 each PO QPM 06/13/19 06/26/19 History Calcium 500 + Vit D Caplet Citalopram TAB* [Celexa TAB*] 0.5 tab PO QAM 06/13/19 06/26/19 History Levothyroxine TAB* [Synthroid 137 137 mcg PO QAM 06/13/19 06/26/19 History MCG TAB*] Losartan TAB* [Cozaar TAB*] 50 mg PO QAM 06/13/19 06/26/19 History Pitavastatin Calcium [Livalo] 2 mg PO QAM 06/13/19 06/26/19 History Acetaminophen TAB* [Tylenol TAB*] 975 mg PO Q8HR tab 06/27/19 Rx Apixaban* [Eliquis*] 2.5 mg PO BID #60 tab 06/27/19 Rx Docusate CAP* [Colace Cap*] 100 mg PO BID PRN #60 cap 06/27/19 Rx oxyCODONE/Acetamin 5/325 MG* 2 tab PO Q4H PRN #60 tab MDD 10 06/27/19 Rx [Percocet 5/325 TAB*] Discharge Instructions following Orthopedic Surgery: Activity: * Weight Bearing as tolerated * Continue physical therapy and occupational therapy exercises as shown * home PT Wound care: * OK to shower on post-op day 3, no bathing, swimming, or submerging wound. * Use gentle soap, pat dry. Cover with gauze, VERITO wrap or tape. * Visiting home nurse to do wound checks. Call Orthopedic office for: * Increased drainage * Redness * Increased pain * Fever Go to ER with shortness of breath or chest pain. Diet: * Regular diet * Increase fluids and fiber to prevent constipation. * Continue to use stool softeners, call office if no bowel motion within 48 hours. Medications See Home Medication List in your packet for medications that you should take after discharge. DVT Prophylaxis: Eliquis Dosin.5 mg, 1 tab every 12 hours x 30 days. Increases bleeding tendency Pain Control: Percocet Dosin/325 mg 1-2 tabs by mouth every 4-6 hours as needed for pain. Maximum of 10 tabs per day. HOld for sedation, wean off as soon as pain allows Please note that Percocet contains Tylenol (acetaminophen). Maximum daily dose of Tylenol is 4000 mg from all sources. Hold losartan today 06/27/19. May resume 06/28/19 Antibiotics are required prior to any dental work. FOLLOW UP: Follow up with Dr. Todd Within 10-14 days, call for appointment Please call our office with any questions or concerns ([phone]) RX [facility] [place] Laboratory Last Values Hgb 11.6 g/dL (12.0-16.0) L 06/27/19 06:43 Hct 35 % (35-47) 06/27/19 06:43 Plt Count 203 10^3/uL (150-450) 06/27/19 06:43 MPV 8.3 fL (7.4-10.4) 06/27/19 06:43 Sodium 138 mmol/L (135-145) 06/27/19 06:43 Potassium 4.3 mmol/L (3.5-5.0) 06/27/19 06:43 Chloride 104 mmol/L (101-111) 06/27/19 06:43 Carbon Dioxide 30 mmol/L (22-32) 06/27/19 06:43 Anion Gap 4 mmol/L (2-11) 06/27/19 06:43 BUN 17 mg/dL (6-24) 06/27/19 06:43 Creatinine 0.76 mg/dL (0.51-0.95) 06/27/19 06:43 Est GFR ( Amer) 90.8 (>60) 06/27/19 06:43 Est GFR (Non-Af Amer) 75.0 (>60) 06/27/19 06:43 BUN/Creatinine Ratio 22.4 (8-20) H 06/27/19 06:43 Glucose 98 mg/dL (70-100) 06/27/19 06:43 Calcium 8.6 mg/dL (8.6-10.3) 06/27/19 06:43 Vital Signs Temp 97.8 F 06/27/19 11:02 Pulse 53 06/27/19 11:02 Resp 16 06/27/19 11:02 BP 107/69 06/27/19 11:02 Pulse Ox 94 06/27/19 11:02 Intake & Output 06/26/19 06/27/19 06/27/19 18:59 06:59 18:59 Intake Total 4640 1080 1345 Output Total 2550 1205 550 Balance 2090 -125 795 Weight 176 lb Intake: IV Fluids 4400 650 LR 2400 650 Lacteted Ringer 2000 Medicated IV 55 Cefazolin 55 Oral 240 1080 640 Output: Urine 750 550 Chavez 2350 455 Estimated Blood Loss 200
== END 2019-06-27 15:38 | disposition home or self-care (01) ==
LOC: AA 07:53 → INTOOBSV 07:53 → SSU 13:31
PROVIDERS: ADMIT Orthopaedic Surgery Adult Reconstructive Orthopaedic Surgery; ATTEND Orthopaedic Surgery Adult Reconstructive Orthopaedic Surgery
DX: M17.12 Unilateral primary osteoarthritis, left knee (principal); I10 Essential (primary) hypertension; E78.00 Pure hypercholesterolemia, unspecified; E03.9 Hypothyroidism, unspecified; M25.462 Effusion, left knee; Z85.850 Personal history of malignant neoplasm of thyroid; Z79.899 Other long term (current) drug therapy; Z79.82 Long term (current) use of aspirin
CPT/HCPCS: 36415; 80048; 85014; 85018; 85049; 88305; 88311; A9270-GY; C1776; G0378; J0690; J1100; J1885; J2250; J2405; J2704; J2795; J3010; J3490